=== PATIENT | female | born 1950 | race Caucasian/White ===

== ENCOUNTER 2019-11-24 14:10 | Emergency (ER) | payer BC ==
[~2019-11-24] VITALS: Ht 154.9 cm; Wt 79.4 kg
[2019-11-24 14:19] VITALS: BP 136/85
[2019-11-24] MEDS ORDERED: PRINIVIL10 MG PO (14:22)
[2019-11-24] MEDS ORDERED: COREG6.25 MG PO (14:23)
[2019-11-24] MEDS ORDERED: LEVOXYL125 MCG PO (14:23)
[2019-11-24] MEDS ORDERED: ASA81BEC PO (14:23)
[2019-11-24] MEDS ORDERED: NORVASC5 MG PO (14:24)
== END 2019-11-24 15:12 | disposition home or self-care (01) ==
LOC: M.ERS 14:10
DX: S42.211A Unspecified displaced fracture of surgical neck of right humerus, initial encounter for closed fracture (principal); I11.0 Hypertensive heart disease with heart failure; I50.9 Heart failure, unspecified; E03.9 Hypothyroidism, unspecified; W18.39XA Other fall on same level, initial encounter; Y93.K1 Activity, walking an animal; Y92.89 Other specified places as the place of occurrence of the external cause; Y99.8 Other external cause status

== ENCOUNTER → 2019-11-29 | Outpatient (CLI) | payer OTHER ==
[~2019-11-29] MED LIST: ASA81BEC PO; COREG6.25 MG PO; LEVOXYL125 MCG PO; NORVASC5 MG PO; PRINIVIL10 MG PO
== END ==
LOC: M.CT 10:52
PROVIDERS: ATTEND Orthopaedic Surgery
DX: S42.231A 3-part fracture of surgical neck of right humerus, initial encounter for closed fracture (principal); X58.XXXA Exposure to other specified factors, initial encounter; Y93.89 Activity, other specified; Y92.89 Other specified places as the place of occurrence of the external cause; Y99.8 Other external cause status